=== PATIENT | female | born 1955 | race Caucasian/White ===

== ENCOUNTER 2019-11-30 15:04 | Outpatient (CLI) | payer MEDICARE, SELFPAY ==
--- NOTE | ~2019-11-30 | US_ITS ---
EXAMINATION: US thyroid DATE: 11/30/2019 15:38 INDICATION: Nontoxic single thyroid nodule TECHNIQUE: Multiple ultrasound images of the thyroid were obtained. COMPARISON: None. FINDINGS: The right thyroid lobe measures 3.7 x 1.5 x 1.3 cm. The left thyroid lobe measures 2.3 x 0.9 x 0.9 c m. There is heterogeneous decreased echogenicity and coarsened echotexture throughout both thyroid l obes. 7 mm wider than tall solid iso to slightly hyperechoic nodule with smooth margins and without e chogenic foci in the inferior right thyroid (TI-RADS 3, mildly suspicious , FNA if >=2.5 cm, annual f ollowup is >1.5 cm). 4-5 mm anechoic cystic nodule with posterior acoustic enhancement at the superio r left thyroid. (TI-RADS 1, benign, no FNA recommended). IMPRESSION: 1. Bilateral thyroid nodules the larger and higher grade a 7 mm TI RADS 3 nodule which remains below threshold for recommendation of either biopsy or follow-up. 2. Small thyroid with heterogeneous decreased echogenicity and coarsened echotexture which could repr esent sequela of chronic thyroiditis. Reviewed, dictated and finalized at location B. IMPRESSION: 1. Bilateral thyroid nodules the larger and higher grade a 7 mm TI RADS 3 nodul e which remains below threshold for recommendation of either biopsy or follow-u p. 2. Small thyroid with heterogeneous decreased echogenicity and coarsened echote xture which could represent sequela of chronic thyroiditis.
== END 2019-11-30 15:05 | disposition home or self-care (01) ==
PROVIDERS: Visit Provider Internal Medicine Endocrinology, Diabetes & Metabolism
DX: E04.2 Nontoxic multinodular goiter (principal)
CPT/HCPCS: 76536